=== PATIENT | male | born 1975 | race African-American/Black ===

== ENCOUNTER 2018-10-08 10:22 | Emergency (ER) | payer SELFPAY ==
[~2018-10-08] VITALS: Ht 188 cm; Wt 97.1 kg
[2018-10-08 10:30] VITALS: BP 140/86
[2018-10-08] MEDS ORDERED: CIPROFLOXACIN500 M2 ORAL (11:01)
--- NOTE | 2018-10-08 11:01 | Emergency Room Report ---
History of Present Illness General Chief Complaint: Diarrhea Source: Patient Present Illness HPI 42-year-old male with no medical problems presents with 1 episode of loose stools every morning for the past week ever since he came back from [place]. He reports he took a course of amoxicillin, because he is having worsening diarrhea earlier, now he states of course, and still having loose stools so came in for evaluation. He denies any rectal bleeding, abdominal pain, fever, vomiting. Allergies: Coded Allergies: No Known Allergies (Unverified , 10/08/18) Patient History Past Medical History: see triage record Reviewed Nursing Documentation: PMH: Agreed; PSxH: Agreed Nursing Documentation-PMH Past Medical History: No Stated History Review of Systems All Other Systems: negative except mentioned in HPI Physical Exam Vital Signs Date Time Temp Pulse Resp B/P (MAP) Pulse Ox O2 Delivery O2 Flow Rate FiO2 10/08/18 10:25 98.4 75 16 140/86 99 Room Air Sp02 EP Interpretation: reviewed, normal General Appearance: no apparent distress, alert, non-toxic Head: normocephalic Eyes: bilateral eye normal inspection, bilateral eye PERRL, bilateral eye EOMI ENT: normal ENT inspection, hearing grossly normal, normal pharynx, no angioedema, normal voice, moist mucus membranes Neck: normal inspection, full range of motion, supple, supple/symm/no masses Respiratory: chest non-tender, lungs clear, normal breath sounds, chest symmetrical, palpation of chest normal Cardiovascular #1: normal peripheral pulses, regular rate, rhythm Cardiovascular #2: 2+ radial (R), 2+ radial (L) Gastrointestinal: normal inspection, non tender, soft, no mass, no guarding, no rebound Rectal: deferred Genitourinary: normal inspection, no CVA tenderness Musculoskeletal: back normal, gait/station normal, normal range of motion, non- tender, no calf tenderness Neurologic: alert, responsive, bench carpenter III-XII nml as tested, motor strength/tone normal, sensory intact, speech normal Psychiatric: judgement/insight normal, memory normal, mood/affect normal Skin: normal color, no rash, warm/dry, normal turgor Lymphatic: no adenopathy Medical Decision Making Diagnostic Impression: Primary Impression: Diarrhea ER Course Patient with travelers diarrhea, also possible antibiotic associated diarrhea, do not suspect C. difficile or any toxic pathology. He's not having large volume stools, just one episode of loose stools every day, will give antibiotics for traveler's diarrhea and recommend probiotics such as activia yogurt or other probiotics, and follow-up with PMD. Last Vital Signs Date Time Temp Pulse Resp B/P (MAP) Pulse Ox O2 Delivery O2 Flow Rate FiO2 10/08/18 10:25 98.4 75 16 140/86 99 Room Air Disposition: HOME, SELF-CARE Condition: Stable Scripts No Active Prescriptions or Reported Meds RONDA MAGUIRE M.D Oct 08, 2018 11:01
[2018-10-08 11:15] VITALS: BP 124/82
== END 2018-10-08 11:15 | disposition home or self-care (01) ==
LOC: EMR 11:05
DX: R19.7 Diarrhea, unspecified (principal)
CPT/HCPCS: 99281